=== PATIENT | male | born 1965 | race Two or more races ===

== ENCOUNTER 2023-05-29 16:15 | Emergency (ER) | payer MEDICAID ==
[~2023-05-29] VITALS: Ht 167.6 cm; Wt 64.0 kg
[2023-05-29 16:50] VITALS: BP 225/100
[2023-05-29 17:58] VITALS: PULSE 70; RESP 16; TEMP 97.8; O2SAT 98
== END 2023-05-29 18:04 | disposition home or self-care (01) ==
LOC: EDBD 16:15 → ER 16:15
DX: Z04.1 Encounter for examination and observation following transport accident (principal); E11.649 Type 2 diabetes mellitus with hypoglycemia without coma; I10 Essential (primary) hypertension
CPT/HCPCS: 82962; 93005